=== PATIENT | male | born 1980 | race Caucasian/White ===

== ENCOUNTER 2018-12-05 17:37 | Emergency (ER) | payer OTHER ==
[~2018-12-05 17:37] MED LIST: AUGMENTIN 875 M1 TAB PO; BACTRIM DS 8001 TA1 PO; BACTRIM DS 8001 TAB PO; BACTROBAN CREAM15 GM T; CEPHALEXIN500 M1 PO; KEFLEX500 MG PO; PERCOCET 325 MG1 TA2 PO; PERCOCET 325 MG1 TA5 PO; SEPTRA DS 800 M1 TAB PO; VICODIN 500 MG-1 TAB PO; VICODIN ES 7501 TAB PO
[2018-12-05] MEDS ORDERED: NAPROSYN500 MG PO (17:47)
[2018-12-05] MEDS ORDERED: NORCO 5-325 TA1 EACH PO (19:07)
== END 2018-12-05 19:16 | disposition home or self-care (01) ==
LOC: ED 17:37
DX: S62.336A Displaced fracture of neck of fifth metacarpal bone, right hand, initial encounter for closed fracture (principal); R03.0 Elevated blood-pressure reading, without diagnosis of hypertension; F17.200 Nicotine dependence, unspecified, uncomplicated; Z79.2 Long term (current) use of antibiotics; Z79.899 Other long term (current) drug therapy; W22.8XXA Striking against or struck by other objects, initial encounter; Y93.89 Activity, other specified; Y92.89 Other specified places as the place of occurrence of the external cause; Y99.8 Other external cause status

== ENCOUNTER 2019-12-06 15:49 | Emergency (ER) | payer OTHER ==
[~2019-12-06] VITALS: Ht 170.1 cm; Wt 68.0 kg
[~2019-12-06 15:49] MED LIST changes: +NAPROSYN500 MG PO; +NORCO 5-325 TA1 EACH PO
== END 2019-12-06 18:36 | disposition home or self-care (01) ==
LOC: ED 15:49
DX: S40.011A Contusion of right shoulder, initial encounter (principal); F17.200 Nicotine dependence, unspecified, uncomplicated; V43.62XA Car passenger injured in collision with other type car in traffic accident, initial encounter; Y93.89 Activity, other specified; Y92.488 Other paved roadways as the place of occurrence of the external cause; Y99.8 Other external cause status

== ENCOUNTER 2022-04-26 16:38 | Emergency (ER) | payer OTHER ==
[~2022-04-26] VITALS: Wt 86.2 kg
== END 2022-04-26 17:55 | disposition short-term general hospital (02) ==
LOC: ED 16:38
DX: S06.4X0A Epidural hemorrhage without loss of consciousness, initial encounter (principal); V26.4XXA Motorcycle driver injured in collision with other nonmotor vehicle in traffic accident, initial encounter; Y93.89 Activity, other specified; Y92.89 Other specified places as the place of occurrence of the external cause; Y99.8 Other external cause status

== ENCOUNTER 2022-06-02 05:04 | Emergency (ER) | payer OTHER ==
[~2022-06-02] VITALS: Wt 68.0 kg
[2022-06-02 06:01] LABS: MEAN CELL VOLUME 99.4 fl (80.0-94.0); MEAN CORPUSCULAR HGB 31.8 pg (27.0-31.0); MEAN CORPUSCULAR HGB CONC 31.9 g/dl (33.0-37.0); MEAN PLATELET VOLUME 8.9 fl (9.6-12.3); PLATELET COUNT AUTOMATED 551 10*3/uL (130-400); RED BLOOD COUNT 3.62 10*6/uL (4.50-5.90); RED CELL DISTRI WIDTH 13.9 % (0-14.5); WHITE BLOOD COUNT 14.1 10*3/uL (4.8-10.8)
[2022-06-02 06:04] LABS: MANUAL DIFF REFLEX YES
[2022-06-02 06:18] LABS: ALKALINE PHOSPHATASE 124 U/L (45-117); BUN 10 mg/dl (7-24); CHLORIDE 105 mmol/L (98-107); CREATININE 0.82 mg/dL (0.70-1.30); POTASSIUM 4.4 mmol/L (3.5-5.1); SGOT/AST 31 IU/L (3-35); SGPT/ALT 36 U/L (12-78); SODIUM 140 mmol/L (136-145); TOTAL PROTEIN 7.4 gm/dL (6.4-8.2)
[2022-06-02 06:27] LABS: PLATELET SUFFICIENCY HIGH (NORMAL); TOTAL CELLS COUNTED 100 #CELLS
== END 2022-06-02 07:05 | disposition home or self-care (01) ==
LOC: ED 05:04
PROVIDERS: Emergency Medicine
DX: U07.1 COVID-19 (principal)

== ENCOUNTER 2025-03-19 18:16 | Emergency (ER) | payer OTHER ==
[2025-03-19] MEDS ORDERED: CLEOCIN HCL300 MG PO (19:48)
[2025-03-19] MEDS ORDERED: CLINDAMYCIN HCL 300 MG CAPSULE PO ONE ×3 (19:50)
== END 2025-03-19 19:56 | disposition home or self-care (01) ==
LOC: ED 18:16
DX: L02.01 Cutaneous abscess of face (principal); L03.811 Cellulitis of head [any part, except face]